=== PATIENT | female | born 1995 | race Asian ===

== ENCOUNTER 2021-06-08 11:20 | Emergency (ER) | payer OTHER ==
[~2021-06-08] VITALS: Ht 157.5 cm; Wt 74.5 kg
[2021-06-08 11:49] VITALS: BP 114/54
--- NOTE | 2021-06-08 12:24 | PHYS DOC ---
Past History Past Surgical History: No Surgical History (АЛЕКСАНДР LUX) Smoking: Non-smoker Alcohol Use: Occasionally (АЛЕКСАНДР LUX) General Adult EDM: Chief Complaint: COUGH HPI: HPI: Patient is a 25 year old female who presents with three day history of shortness of breath, cough, fever and fatigue. Patient states her symptoms started after a workout three days ago. She thought it was "post pre-workout crash," but was more concerned when her symptoms continued several hours that day. She also developed a 102F fever which broke the next day. Patient has been taking tyl enol and advil to treat her symptoms. Her main concern to day is her shortness of breath that is affecting how long she is able to speak without having difficulty breathing. She received the J&J COVID-19 vaccine and got her flu shot in March. (АЛЕКСАНДР LUX) Review of Systems: Review of Systems: Constitutional: See HPI Eyes: Denies change in visual acuity, visual field deficits or discharge HENT: Denies ear pain, nasal congestion or sore throat Respiratory: See HPI Cardiovascular: Denies chest pain, palpitations or edema GI: Denies abdominal pain, nausea, vomiting, bloody stools or diarrhea : Denies dysuria or hematuria Musculoskeletal: Denies back pain or joint pain Integument: Denies rash or other skin lesion Neurologic: Denies headache, focal weakness or sensory changes (АЛЕКСАНДР LUX) Physical Exam: PE: Constitutional: Well developed, well nourished, no acute distress, non-toxic appearance. HENT: Normocephalic, atraumatic, bilateral external ears normal, oropharynx moist, nose normal. Eyes: PERRLA, EOMI, conjunctiva normal, no discharge. Neck: Normal range of motion, no stridor. Skin: Warm, dry, no erythema, no rash. Extremities: No tenderness, no cyanosis, no clubbing, ROM intact, no edema. Neurologic: Alert and oriented x4, steady and symmetrical gait, no focal deficits noted. (АЛЕКСАНДР LUX) Current Patient Data: Labs: Laboratory Tests Test 06/08/21 12:08 Influenza Type A (Rapid) Negative (NEGATIVE) Influenza Type B (Rapid) Negative (NEGATIVE) Vital Signs: Vital Signs Date Time Temp Pulse Resp B/P (MAP) Pulse Ox O2 Delivery O2 Flow Rate FiO2 06/08/21 11:49 98.8 82 16 114/54 (74) 99 Room Air (АЛЕКСАНДР LUX) Radiology/Procedures: Radiology/Procedures: PROCEDURE: CHEST AP ONLY XR CHEST 1V History: Reason: cough, sob / Spl. Instructions: / History: Comparison: None. Findings: No consolidation or pleural effusion. Normal heart size. No pneumothorax. Impression: 1. No acute cardiopulmonary process. Electronically signed by: Jose Enrique Dsouza DO (06/08/2021 12:49 PM) [id number] (АЛЕКСАНДР LUX) Heart Score: C/O Chest Pain: N/A (АЛЕКСАНДР LUX) Course & Med Decision Making: Course & Med Decision Making Pertinent Labs and Imaging studies reviewed. (See chart for details) Patient is a 25-year-old female vaccinated against COVID-19 and influenza who presents with multiple symptoms concerning for viral syndrome. Work-up today will include flu A & B swab, chest x-ray. We do not have COVID PCR test available due to shortage in the lab, but that is the only reason one was not included in work-up today. Patient was given isolation instructions, supportive treatment measures as well as return precautions. She understands and is agreeable to discharge plan. (АЛЕКСАНДР LUX) Course & Med Decision Making I was the Attending physician on the above date of service of this patient. This patient was evaluated, examined, treated, and dispositioned from the emergency department by the mid-level practitioner. Although I was working at the time , no assistance was requested. Electronically signed, Jose Alejandro Escalera DO (JOSE ALEJANDRO ESCALERA DO) Buck Disclaimer: Buck Disclaimer: This electronic medical record was generated, in whole or in part, using a voice recognition dictation system. (АЛЕКСАНДР LUX) Departure Departure: Impression: Primary Impression: Viral syndrome Disposition: HOME / SELF CARE / HOMELESS Condition: STABLE Referrals: [facility] (PCP) Patient Instructions: Incentive Spirometer, Viral Syndrome Additional Instructions: Follow the following supportive treatment measures: - Cool mist humidifier with plain water at bedside while you sleep - Mucinex (guaifenesin) per box instructions - Tessalon perles (benzonatate) for cough, especially at night before bed - Albuterol inhaler for shortness of breath/difficulty breathing - Alternate ibuprofen and acetaminophen every four hours for body aches/fever/headache - Use the incentive spirometer 5 times per day with 10 deep breaths each time If antibiotics were prescribed, take them as directed. You have been tested for or diagnosed with COVID-19 infection. It is an infection caused by a new type of coronavirus. COVID-19 will cause cold-like or mild flu symptoms in most. It can cause more severe symptoms like problems breathing in some. There is no treatment for COVID-19. The body will clear the infection over time. Self-care will help to ease discomfort. Steps to Take: - Rest as needed. - Choose healthy foods including fruits and vegetables. Drink water throughout the day. - Get plenty of sleep each night. - If you smoke, try to quit. It may ease breathing. - Avoid alcohol. - Keep Others Healthy - The virus can spread to others. Droplets are released every time you sneeze or cough. The droplets can get into the mouth, nose, or eyes of people near you and lead to infection. To lower the chances of spreading COVID-19 to others: Stay at home until your doctor has said it is safe to leave. If you tested positive this will mean staying isolated until both of the following are true: - At least 7 days have passed since the start of illness. - You are free of fever for at least 72 hours without the use of medicine. During this time: - Avoid public areas, events, or transportation. Do not return to work or school until your doctor has said it is safe to do so. - Call ahead if you need to go to a medical center. Let them know you may have COVID-19. It will help them guide you where to go. They may also ask you to wear a facemask when you come to the office. - If you call for emergency medical services, let them know you may have COVID- 19. While at home: - Try to avoid close contact with others. Stay about 6 feet away. - If possible, spend most of your time in a separate room from others. - Use a face mask if you will be in close contact with others such as sharing a room or vehicle. - Have someone wipe down common surfaces in the home. Use household animal surgeon every day on areas like doorknobs, counters, or sinks. - Cough or sneeze into a tissue. Throw the tissue away right after use. If a tissue is not available, cough or sneeze into your elbow. - Wash your hands often. Wash them after sneezing or coughing. Use soap and water and wash or at least 20 seconds. Alcohol based hand vat cleaner can be used if soap and water is not available. - Do not prepare food for others. Avoid sharing personal items like forks, spoons, or toothbrushes. - Avoid close contact with pets while you are sick. There is no evidence of the virus passing to pets. This is a safety step until more is known about this virus. - Isolation can be frustrating. Social interaction can help. Keep in touch with friends and family through phone and tech options. You can still interact with others in your home, just keep a safe distance of about 6 feet. Follow-up: - Your doctors office will check in with you to see if there are any changes in your health. - You may be asked to keep track of symptoms to share with them. They will also let you know when you are clear to be in public again. Contact your doctor if your recovery is not going as you expect. Get emergency care if you have problems such as: - Trouble breathing with oxygen saturation <90% - Nonstop chest pain or pressure - Changes in awareness, confusion, or problems waking - Lips or face have bluish color - Worsening of symptoms If you think you have an emergency, call for emergency medical services right away. As taken from [facility] Benzonatate (BENZONATATE) 100 Mg Capsule 1-2 CAP PO HS for cough, #20 CAP Prov: АЛЕКСАНДР LUX 06/08/21 Albuterol Sulfate (PROAIR HFA INHALER) 8.5 Gm Hfa.aer.ad 2 PUFF IH PRN Q4-6HRS PRN for wheezing for 21 Days, #1 INHALER 0 Refills Prov: АЛЕКСАНДР LUX 06/08/21 АЛЕКСАНДР LUX Jun 08, 2021 12:24 JOSE ALEJANDRO ESCALERA DO Jun 11, 2021 02:22
--- NOTE | 2021-06-08 12:51 | RAD ---
XR CHEST 1V History: Reason: cough, sob / Spl. Instructions: / History: Comparison: None. Findings: No consolidation or pleural effusion. Normal heart size. No pneumothorax. Impression: 1. No acute cardiopulmonary process. Electronically signed by: Jose Enrique Dsouza DO (06/08/2021 12:49 PM) [id number]
[2021-06-08 13:04] LABS: INFLUENZA A PATIENT NEGATIVE (NEGATIVE); INFLUENZA B PATIENT NEGATIVE (NEGATIVE)
[2021-06-08] MEDS ORDERED: ALBU2.5V8 IH (13:17)
[2021-06-08] MEDS ORDERED: BENZ-8 PO (13:17)
== END 2021-06-08 13:50 | disposition home or self-care (01) ==
LOC: ER 11:20
DX: B34.9 Viral infection, unspecified (principal)
CPT/HCPCS: 71045; 87428; 99284